=== PATIENT | female | born 1955 | race Caucasian/White ===

== ENCOUNTER 2016-12-21 09:00 | Inpatient (IN) | payer OTHER ==
[~2016-12-21] VITALS: Ht 177.8 cm; Wt 159.3 kg
--- NOTE | ~2016-12-21 | DS ---
PATIENT'S NAME: LESTER VALLES [facility] AGE: 61 Y [address] ROOM: [place] [address] LOCATION: [facility] ADMIT DATE: 01/05/2017 Discharge Summary DISCHARGE DATE: 01/07/2017 FAMILY PHYSICIAN: Josie Stafford PA-C ATTENDING PHYSICIAN: Giovanni Rodriguez PRIMARY DIAGNOSIS: Osteoarthritis, right hip. SECONDARY DIAGNOSES: 1. Hypertension. 2. Obese with BMI of 51. 3. Venous stasis dermatitis. 4. Diabetes mellitus. PROCEDURE PERFORMED: Right total hip arthroplasty. HISTORY: The patient is a 61-year-old female, who presents with advanced right hip degenerative joint disease and associated severely compromised activities of daily living. The patient has decided to proceed with total right hip arthroplasty after having been thoroughly counseled regarding the risks, benefits, limitations and alternatives. Please refer to the outpatient clinic notes and admission history and physical for this patient. HOSPITAL COURSE: The patient underwent a total right hip arthroplasty on 01/05/2017 without complications. Spinal anesthesia plus subcutaneous local anesthesia was utilized. The patient received 24 hours of perioperative prophylactic antibiotics and remained hemodynamically stable, neurovascularly intact throughout the entire hospital course. The postoperative prophylactic deep venous thrombosis prophylaxis consisted of Xarelto 10 mg, early mobilization and pneumatic compression devices. Daily physical therapy for gait training, transfer training, and reinforcement of hip dislocation precautions were received. The patient progressed well in physical therapy. On the date of discharge, 01/07/2017, the incision at the hip was healing well and showed no signs of infection. DISPOSITION: Home. DISCHARGE ACTIVITY: The patient is to bear weight as tolerated with strict hip dislocation precautions as instructed. There are to be no dressing changes. Dr. Rodriguez is to be notified immediately if there is any increased pain, fevers, chills, erythema or drainage. DISCHARGE MEDICATIONS: Include: 1. Xarelto 10 mg, take one tab p.o. daily for DVT prevention. 2. Dilaudid 2 mg, take 1-2 tablets p.o. every 4 hours as needed for pain. PATIENT'S NAME: LESTER VALLES [facility] AGE: 61 Y [address] ROOM: [place] [address] LOCATION: [facility] ADMIT DATE: 01/05/2017 Discharge Summary DISCHARGE DATE: 01/07/2017 FAMILY PHYSICIAN: Josie Stafford PA-C ATTENDING PHYSICIAN: Giovanni Rodriguez FOLLOWUP: Followup appointment is to be with Dr. Rodriguez on 01/12/2017, for initial postoperative evaluation. JOEL ALMAZAN FOR MD BERTRAM NUNNB/modl /[id number] d: 01/19/17 0326 t: 01/26/17 0809, DISCHARGE SUMMARY
--- NOTE | ~2016-12-21 | OR ---
PATIENT'S NAME: LESTER VALLES [facility] AGE: 61 Y [address] ROOM: [place] [address] LOCATION: [facility] ADMIT DATE: 01/05/2017 OR/Procedure Report DISCHARGE DATE: FAMILY PHYSICIAN: Josie Stafford PA-C ATTENDING PHYSICIAN: VLADIMIR FULLER SURGEON: Vladimir Fuller MD WORKFORCE CONSULTANT: Manuel Dahl CST/PCA and Vladimir Sandhu. DATE OF PROCEDURE: 01/05/2017 PRE-OP DIAGNOSES: 1. Primary osteoarthritis, right hip. 2. Morbid obesity (161 kg and 5 feet 10 inches tall). POST-OP DIAGNOSES: 1. Primary osteoarthritis, right hip. 2. Morbid obesity (161 kg and 5 feet 10 inches tall). OPERATION: Right total hip arthroplasty. ANESTHESIA: Spinal anesthesia plus subcutaneous local anesthesia (ropivacaine with epinephrine). ESTIMATED BLOOD LOSS: Approximately 275 mL. DRAIN: None. SPECIMEN: None. COMPLICATIONS: None. IMPLANTS: 1. Angélica Trident Tritanium size 58 mm hemispherical uncemented acetabular shell with one dome hole cover and no screws. 2. Angélica X3 acetabular polyethylene liner with 36 mm inner diameter and 10 degree face change(elevation centered at the 9:30 position). 3. Angélica Accolade II size 8 high offset, uncemented femoral component. 4. 36 mm diameter Biolox femoral head with -5 mm neck length. INDICATION FOR SURGERY: Lester Valles is a 61-year-old female, who presents with advanced right hip primary osteoarthritis and morbid obesity and associated severely compromised activities of daily living. The patient has decided to proceed with hip replacement after having been thoroughly counseled regarding the associated risks, benefits, and limitations. We have specifically reviewed the risks and implications of infection, deep venous thrombosis, PATIENT'S NAME: LESTER VALLES [facility] AGE: 61 Y [address] ROOM: [place] [address] LOCATION: [facility] ADMIT DATE: 01/05/2017 OR/Procedure Report DISCHARGE DATE: FAMILY PHYSICIAN: Josie Stafford PA-C ATTENDING PHYSICIAN: VLADIMIR FULLER pulmonary embolism, mortality, neurovascular complications, blood transfusion (and associated potential for disease transmission or transfusion reaction), stiffness, instability, leg length discrepancy, mechanical deterioration of the components (due to wear and to loosening), and the potential need for revision. DESCRIPTION OF PROCEDURE: The patient was positioned in a lateral decubitus position with the right side up after administration of anesthesia and prophylactic antibiotics. An axillary roll was placed and the non-operative leg was well padded. The pelvis was locked perpendicularly to the floor on a pegboard. The right hip and entire operative extremity were prepped and draped with vigilant sterile technique. The patient's name as well as the intended operative side and procedure were confirmed with a verbal time-out involving myself, the circulating nurse, the scrub nurse, and the anesthesiologist. The right hip was approached through a standard posterolateral incision. The fascia kavon and the gluteus saran fascia were sharply divided in line with the overlying skin incision. The sciatic nerve was identified and was vigilantly protected throughout the entire case. The short external rotators and posterior capsule were divided from their respective femoral insertions and tagged with four #1 Ethibond sutures for later repair. The hip was posteriorly dislocated with combined flexion, adduction, and internal rotation. The femoral neck osteotomy was performed with an oscillating saw. Inspection of the femoral head demonstrated global full-thickness loss of articular cartilage. There was a massive osteophyte at the anterior aspect of the femoral head and neck. There was no femoral head collapse. Circumferential acetabular exposure was obtained. Inspection of the acetabulum demonstrated a 1.5 cm loose body. There were large osteophytes anteriorly, superiorly, inferiorly, and posteriorly. There was a small medial acetabular osteophyte. There was a large effusion consisting of benign- appearing translucent synovial fluid. There was full-thickness loss of articular cartilage throughout the acetabular dome. Remnants of the acetabular labrum were sharply thoroughly excised. The final acetabular shell was impacted into position in 20 degrees of anteversion and 45 degrees of inclination. An Excellent press-fit was obtained. No supplemental dome screw fixation was necessary. A neutral trial liner was inserted. Attention was next focused upon femoral preparation. The femoral canal initiator was utilized. No reaming was performed (except for with the canal finder) the femoral canal was subsequently sequentially progressively broached up to a size 8. The size 8 broach obtained excellent axial and rotational PATIENT'S NAME: LESTER VALLES [facility] AGE: 61 Y [address] ROOM: [address] [address] LOCATION: [facility] ADMIT DATE: 01/05/2017 OR/Procedure Report DISCHARGE DATE: FAMILY PHYSICIAN: Josie Stafford PA-C ATTENDING PHYSICIAN: VLADIMIR FULLER. Trial reductions with the above specified construct yielded acceptable stability and acceptable reproduction of leg length and offset. All trial components were removed. The final acetabular liner was inserted with excellent circumferential visualization of its locking mechanism to assure adequate deployment. The final femoral component was impacted into position. The femoral component achieved excellent axial and rotational stability. The trunnion of the femoral component was vigilantly protected prior to placement of the femoral head. The trunnion of the femoral component was thoroughly cleaned and dried prior to placement of the femoral head. The incision was thoroughly irrigated with bacteriostatic pulsatile saline lavage multiple times throughout the case. The entire joint space was thoroughly inspected and thoroughly irrigated to assure that there was no residual debris of any sort. A final reduction was then performed. After final reduction, the hip could be firmly externally rotated in full extension and zero degrees of abduction without anterior subluxation. In neutral rotation and zero degrees of abduction, the hip could be firmly flexed to 120 degrees without instability. At 90 degrees of flexion and zero degrees abduction, the hip could be internally rotated to 60 degrees before there was any hint of posterior subluxation. The posterior capsule and short external rotators were repaired through two drill holes in the posterior aspect of the greater trochanter. The fascia kavon and gluteus saran fascia were closed with multiple simple and [id number] interrupted # 1 Ethibond and #1 Vicryl sutures. Subcutaneous tissues were thoroughly re-irrigated with bacteriostatic pulsatile saline lavage. Subcutaneous tissues were re-approximated with simple buried interrupted #0 Vicryl sutures. The skin was closed with superficial buried interrupted 2-0 Vicryl sutures followed by a running subcuticular 3-0 Monocryl suture, followed by Octylseal, followed by Steri- Strips with benzoin, followed by an occlusive Mepilex dressing. There were no intra-operative complications. MD [facility] NUNN/jany PATIENT'S NAME: LESTER VALLES [facility] AGE: 61 Y [address] ROOM: [address] [address] LOCATION: [facility] ADMIT DATE: 01/05/2017 OR/Procedure Report DISCHARGE DATE: FAMILY PHYSICIAN: Josie Stafford PA-C ATTENDING PHYSICIAN: VLADIMIR FULLER /[id number] d: 01/05/17 1436 t: 01/06/17 2202, OPERATIVE SUMMARY
[2016-12-21] MEDS ORDERED: COZAAR50 MG PO (09:40)
[2016-12-21] MEDS ORDERED: ACIPHEX20 MG PO (09:40)
[2016-12-21] MEDS ORDERED: ZEBETA5 MG PO (09:41)
[2016-12-21] MEDS ORDERED: HYDROCODON-ACE1 EAC4 PO (09:42)
[2017-01-07] MEDS ORDERED: TYLENOL EXTRA500 MG PO (13:11)
[2017-01-07] MEDS ORDERED: COLACE100 MG PO (13:11)
[2017-01-07] MEDS ORDERED: MIRALAX17 GM PO (13:12)
[2017-01-07] MEDS ORDERED: XARELTO10 MG PO (13:13)
[2017-01-07] MEDS ORDERED: DILAUDID 2MG(HYD2 MG PO (13:14)
== END 2017-01-07 16:30 | disposition disaster alternative care site (69) | DRG 470 ==
LOC: G3N 01-05 06:12
PROVIDERS: ADMIT Orthopaedic Surgery
PROC: 0SR902A Replacement of Right Hip Joint with Metal on Polyethylene Synthetic Substitute, Uncemented, Open Approach (ICD-10-PCS; principal; 2017-01-05)
DX: M16.11 Unilateral primary osteoarthritis, right hip (principal); Z68.43 Body mass index [BMI] 50.0-59.9, adult; I10 Essential (primary) hypertension; E66.01 Morbid (severe) obesity due to excess calories; Z96.659 Presence of unspecified artificial knee joint; K21.9 Gastro-esophageal reflux disease without esophagitis; I48.91 Unspecified atrial fibrillation; E11.9 Type 2 diabetes mellitus without complications; I87.2 Venous insufficiency (chronic) (peripheral); Z90.710 Acquired absence of both cervix and uterus; Z87.891 Personal history of nicotine dependence; Z88.8 Allergy status to other drugs, medicaments and biological substances
CPT/HCPCS: C1776; J0690; J1885; J2001; J2795; J7030; J7120

== ENCOUNTER → 2016-12-24 | Outpatient (CLI) | payer OTHER ==
[~2016-12-24] MED LIST: ACIPHEX20 MG PO; COLACE100 MG PO; COZAAR50 MG PO; DILAUDID 2MG(HYD2 MG PO; HYDROCODON-ACE1 EAC4 PO; MIRALAX17 GM PO; TYLENOL EXTRA500 MG PO; XARELTO10 MG PO; ZEBETA5 MG PO
== END | disposition disaster alternative care site (69) ==
LOC: GNJRC 10:03
DX: Z01.812 Encounter for preprocedural laboratory examination (principal); M16.11 Unilateral primary osteoarthritis, right hip